=== PATIENT | male | born 1935 | race Caucasian/White ===

== ENCOUNTER 2017-11-25 14:35 | Emergency (ER) | payer MEDICARE, SELFPAY ==
[2017-11-25 14:42] VITALS: BP 163/99; PULSE 68; RESP 18; TEMP 36.8; O2SAT 99
--- NOTE | 2017-11-25 15:11 | W.ED.GENAD ---
Discharge Plan Disposition Patient Disposition: HOME Discharge Details Chief Complaint: DentalOral Clinical Impression: Tooth ache Primary Care Provider: Kalia Garcia ED Provider: Elmo Messina Carter Meds and New Rx's Prescriptions: New amoxicillin 500 mg tablet 500 mg PO TID Qty: 30 RF: 0 oxycodone-acetaminophen [Percocet] 5-325 mg tablet 1 tab PO Q12H PRN PRN (Reason: dental pain) Qty: 4 RF: 0 No Action acetaminophen 325 MG tablet 650 mg PO Q4H PRN RF: 0 simvastatin 20 MG tablet 20 mg PO HS Qty: 90 RF: 4 Dabigatran Etexilate Mesylate [Pradaxa] 150 MG capsule 150 mg PO BID Qty: 180 RF: 3 atenolol 25 MG tablet 25 mg PO DAILY Qty: 180 RF: 3 penicillin V potassium 125 MG/5 ML recon soln 500 mg PO q 8 hrs RF: 0 losartan 25 MG tablet 25 mg PO DAILY Qty: 90 RF: 3 Discharge Instructions Instructions: Toothache (ED) Additional Instructions: Please take Tylenol BID as needed for pain. Referrals: Kalia Garcia. [Primary Care Provider] - Return if symptoms worsen Medical Decision Making Offered Tylenol for pain while he was here he declined. Wanted something stronger. Risk versus benefits discussed. I prescribed him Percocet. He agreed with POC. I advised to f/u with dentist. He tells me after he is currently taking antibiotics PCN prescribed by the eye doctor. I advised to stop that script and start the Amoxicillin I prescribed him. He agreed. Advised to return to PCP if symptoms worsen. HPI General Mode of arrival: ambulatory (with cane). Date/Time Provider Initiated Documentation: 11/25/17 15:11. Limitations to Documentation: no limitations. Information obtained by: patient. History of Present Illness 82 year old M presents to the emergency department with the chief complaint of dental pain, described as moderate, Quality is described as aching, and is localized to the mouth (dental). Patient reports no radiation. Patient started experiencing this day(s) (4) and it has been constant and intermittent. No relieving factors improve symptom(s), Movement worsens symptoms . Patient notes no other symptoms.. Patient did receive the following treatments prior to arrival, other (Tylenol) Related Data Home Medications Medication Instructions Recorded Confirmed acetaminophen 650 mg PO Q4H PRN tab-cap 03/30/14 11/25/17 simvastatin 20 mg PO HS #90 tab-cap 04/12/17 11/25/17 atenolol 25 mg PO DAILY #180 tab-cap 09/09/17 11/25/17 losartan 25 mg PO DAILY #90 tab-cap 10/19/17 penicillin V potassium 500 mg PO q 8 hrs ml 10/19/17 11/25/17 amoxicillin 500 mg PO TID #30 tab 11/25/17 oxycodone-acetaminophen [Percocet] 1 tab PO Q12H PRN PRN #4 tab 11/25/17 Previous Rx's Medication Instructions Recorded simvastatin 20 mg PO HS #90 tab-cap 04/12/17 atenolol 25 mg PO DAILY #180 tab-cap 09/09/17 losartan 25 mg PO DAILY #90 tab-cap 10/19/17 amoxicillin 500 mg PO TID #30 tab 11/25/17 oxycodone-acetaminophen [Percocet] 1 tab PO Q12H PRN PRN #4 tab 11/25/17 Allergies Allergy/AdvReac Type Severity Reaction Status Date / Time lisinopril AdvReac Mild cough Unverified 11/25/17 14:51 General Stated Complaint: DentalOral ZULEMA: 4 Review of Systems Eyes Denies irritation and Denies itchy eyes ENT Denies bleeding gums, Denies halitosis, Reports dental pain, Denies dysphagia, Denies nasal congestion, Denies nasal discharge and Denies neck pain Cardiovascular Denies chest pain Respiratory Denies chest congestion, Reports cough and Denies wheezing Gastrointestinal Denies abdominal pain, Denies dysphagia, Denies nausea and Denies vomiting Musculoskeletal Denies neck pain Allergic/Immunologic Denies itchy eyes and Denies wheezing PFSH Family History Mother Coronary arteriosclerosis Father Arterial ischemic stroke Medical History Basal cell cancer Diabetes Paroxysmal atrial fibrillation Trigger finger Social History Smoking/Tobacco Use Status: Current-Occasional Surgical History Appendectomy Repair of inguinal hernia Skin Cancer Removal Tonsillectomy and adenoidectomy Exam [facility] Head: normal to inspection Ears: external ears normal, TM's normal bilaterally and hearing grossly impaired (wears hearing aides ) bilaterally General nose exam: external nose normal and nares normal Face and sinus: normal facial exam Mouth: oral mucosae normal, lip normal and tongue normal Teeth and gingiva: bridge (top and bottom plate) and poor dentition Teeth image: 1. Tooth number 27 is mildly loose with minimal redness and no swelling. Slightly decayed. He did take his bottom plate out and fum line looks normal. He has one adjacent tooth number 26 intact. No abscess noted. Throat: posterior oropharynx normal and uvula midline Neck Neck: normal visual inspection, full ROM and no lymphadenopathy Resp Effort & Inspection: normal respiratory effort Auscultation: clear to auscultation bilaterally Cardio Rate: regular rate Neuro General: alert, awake and oriented x3 Cognition: normal cognition Speech: speech normal Gait: normal gait Psych Appearance: grossly normal Mood: congruent mood Affect: normal affect Attitude: cooperative Thought Process: normal Thought Content: normal Insight: insight good Judgment: judgment good Course Vital Signs Temperature 36.8 C 11/25/17 14:42 Pulse 68 11/25/17 14:42 Respiratory Rate 18 11/25/17 14:42 Blood Pressure 163/99 H 11/25/17 14:42 Pulse Oximetry 99 11/25/17 14:42 Temperature 36.8 C 11/25/17 14:42 Temperature Source Skin 11/25/17 14:42 Pulse 68 11/25/17 14:42 Respiratory Rate 18 11/25/17 14:42 Blood Pressure 163/99 H 11/25/17 14:42 Blood Pressure Position Sitting 11/25/17 14:42 Pulse Oximetry 99 11/25/17 14:42 Oxygen Delivery Method Room Air 11/25/17 14:42 Oxygen Flow Rate 0 11/25/17 14:42 Pain Level 9 11/25/17 14:55
--- NOTE | 2017-11-25 15:15 | ED.GENADUL_ITS ---
Discharge Plan Disposition Patient Disposition: HOME Discharge Details Chief Complaint: DentalOral Clinical Impression: Tooth ache Primary Care Provider: Kalia Garcia ED Provider: Elmo Messina Tensed Meds and New Rx's Prescriptions: New amoxicillin 500 mg tablet 500 mg PO TID Qty: 30 RF: 0 oxycodone-acetaminophen [Percocet] 5-325 mg tablet 1 tab PO Q12H PRN PRN (Reason: dental pain) Qty: 4 RF: 0 No Action acetaminophen 325 MG tablet 650 mg PO Q4H PRN RF: 0 simvastatin 20 MG tablet 20 mg PO HS Qty: 90 RF: 4 Dabigatran Etexilate Mesylate [Pradaxa] 150 MG capsule 150 mg PO BID Qty: 180 RF: 3 atenolol 25 MG tablet 25 mg PO DAILY Qty: 180 RF: 3 penicillin V potassium 125 MG/5 ML recon soln 500 mg PO q 8 hrs RF: 0 losartan 25 MG tablet 25 mg PO DAILY Qty: 90 RF: 3 Discharge Instructions Instructions: Toothache (ED) Additional Instructions: Please take Tylenol BID as needed for pain. Referrals: Kalia Garcia. [Primary Care Provider] - Return if symptoms worsen Medical Decision Making Offered Tylenol for pain while he was here he declined. Wanted something stronger. Risk versus benefits discussed. I prescribed him Percocet. He agreed with POC. I advised to f/u with dentist. He tells me after he is currently taking antibiotics PCN prescribed by the eye doctor. I advised to stop that script and start the Amoxicillin I prescribed him. He agreed. Advised to return to PCP if symptoms worsen. HPI General Mode of arrival: ambulatory (with cane) . Date/Time Provider Initiated Documentation: 11/25/17 15:11 . Limitations to Documentation: no limitations . Information obtained by: patient . History of Present Illness 82 year old M presents to the emergency department with the chief complaint of dental pain, described as moderate, Quality is described as aching, and is localized to the mouth (dental). Patient reports no radiation. Patient started experiencing this day(s) (4) and it has been constant and intermittent. No relieving factors improve symptom(s), Movement worsens symptoms . Patient notes no other symptoms.. Patient did receive the following treatments prior to arrival, other (Tylenol) Related Data Home Medications Medication Instructions Recorded Confirmed acetaminophen 650 mg PO Q4H PRN tab-cap 03/30/14 11/25/17 simvastatin 20 mg PO HS #90 tab-cap 04/12/17 11/25/17 atenolol 25 mg PO DAILY #180 tab-cap 09/09/17 11/25/17 losartan 25 mg PO DAILY #90 tab-cap 10/19/17 penicillin V potassium 500 mg PO q 8 hrs ml 10/19/17 11/25/17 amoxicillin 500 mg PO TID #30 tab 11/25/17 oxycodone-acetaminophen [Percocet] 1 tab PO Q12H PRN PRN #4 tab 11/25/17 Previous Rx's Medication Instructions Recorded simvastatin 20 mg PO HS #90 tab-cap 04/12/17 atenolol 25 mg PO DAILY #180 tab-cap 09/09/17 losartan 25 mg PO DAILY #90 tab-cap 10/19/17 amoxicillin 500 mg PO TID #30 tab 11/25/17 oxycodone-acetaminophen [Percocet] 1 tab PO Q12H PRN PRN #4 tab 11/25/17 Allergies Allergy/AdvReac Type Severity Reaction Status Date / Time lisinopril AdvReac Mild cough Unverified 11/25/17 14:51 General Stated Complaint: DentalOral ZULEMA: 4 Review of Systems Eyes Denies irritation and Denies itchy eyes ENT Denies bleeding gums, Denies halitosis, Reports dental pain, Denies dysphagia, Denies nasal congestion, Denies nasal discharge and Denies neck pain Cardiovascular Denies chest pain Respiratory Denies chest congestion, Reports cough and Denies wheezing Gastrointestinal Denies abdominal pain, Denies dysphagia, Denies nausea and Denies vomiting Musculoskeletal Denies neck pain Allergic/Immunologic Denies itchy eyes and Denies wheezing PFSH Family History Mother Coronary arteriosclerosis Father Arterial ischemic stroke Medical History Basal cell cancer Diabetes Paroxysmal atrial fibrillation Trigger finger Social History Smoking/Tobacco Use Status: Current-Occasional Surgical History Appendectomy Repair of inguinal hernia Skin Cancer Removal Tonsillectomy and adenoidectomy Exam [facility] Head: normal to inspection Ears: external ears normal, TM's normal bilaterally and hearing grossly impaired (wears hearing aides ) bilaterally General nose exam: external nose normal and nares normal Face and sinus: normal facial exam Mouth: oral mucosae normal, lip normal and tongue normal Teeth and gingiva: bridge (top and bottom plate) and poor dentition Teeth image: 2 1. Tooth number 27 is mildly loose with minimal redness and no swelling. Slightly decayed. He did take his bottom plate out and fum line looks normal. He has one adjacent tooth number 26 intact. No abscess noted. Throat: posterior oropharynx normal and uvula midline Neck Neck: normal visual inspection, full ROM and no lymphadenopathy Resp Effort & Inspection: normal respiratory effort Auscultation: clear to auscultation bilaterally Cardio Rate: regular rate Neuro General: alert, awake and oriented x3 Cognition: normal cognition Speech: speech normal Gait: normal gait Psych Appearance: grossly normal Mood: congruent mood Affect: normal affect Attitude: cooperative Thought Process: normal Thought Content: normal Insight: insight good Judgment: judgment good Course Vital Signs Temperature 36.8 C 11/25/17 14:42 Pulse 68 11/25/17 14:42 Respiratory Rate 18 11/25/17 14:42 Blood Pressure 163/99 H 11/25/17 14:42 Pulse Oximetry 99 11/25/17 14:42 Temperature 36.8 C 11/25/17 14:42 Temperature Source Skin 11/25/17 14:42 Pulse 68 11/25/17 14:42 Respiratory Rate 18 11/25/17 14:42 Blood Pressure 163/99 H 11/25/17 14:42 Blood Pressure Position Sitting 11/25/17 14:42 Pulse Oximetry 99 11/25/17 14:42 Oxygen Delivery Method Room Air 11/25/17 14:42 Oxygen Flow Rate 0 11/25/17 14:42 Pain Level 9 11/25/17 14:55
[2017-11-25 15:31] VITALS: BP 122/80; PULSE 90; RESP 18; TEMP 36.8; O2SAT 99
== END 2017-11-25 15:32 | disposition home or self-care (01) ==
PROVIDERS: Emergency Provider Nurse Practitioner Family; PCP Family Medicine
DX: R68.84 Jaw pain (principal); I10 Essential (primary) hypertension; E11.9 Type 2 diabetes mellitus without complications
CPT/HCPCS: 99283